=== PATIENT | male | born 1960 | race Caucasian/White ===

== ENCOUNTER 2016-10-05 09:05 | Emergency (ER) | payer MEDICAID, MEDICARE ==
--- NOTE | 2016-10-05 09:23 | ED.PDOC ---
History of Present Illness - General Chief Complaint: Skin/Abrasion/Tear Stated Complaint: Fall with head/knee abrasion Time Seen by Provider: 10/05/16 09:17 Source: family Exam Limitations: clinical condition, language barrier, physical impairment - History of Present Illness Initial Comments: Rogelio Chávez 56 y/o male mentally challenge and with limited verbal capacities brought by caregiver fell afte taking a shower with saclp abrasion and bilateral knee pain toady at home. Timing/Duration: just prior to arrival Severity: moderate Location: scalp, extremities Improving Factors: rest Worsening Factors: movement Associated Symptoms: other - erythema scalp/knees Allergies/Adverse Reactions: Allergies NO KNOWN ALLERGY Allergy (Verified 09/21/14 16:18) Home Medications: Ambulatory Orders Amoxicillin 875 mg PO BID #20 tab 02/28/15 Calcium & Phosphorus W/ Vitami [Citracal+D3 250-107-500 mg-mg-Unit] 1 chw PO DAILY 02/28/15 Carbamide Peroxide Otic [Debrox] 2 drops OTIC WKLY 02/28/15 Cellulose [Unifiber] 1 tsp PO DAILY 02/28/15 Clobetasol Propionate 0.05 % EX PRN PRN 02/28/15 Cyanocobalamin Inj [Vitamin B-12 Inj] 1,000 mcg IM MONTHLY 02/28/15 Cyanocobalamin [Vitamin B12] 1,000 mcg PO DAILY 02/28/15 Docusate Sodium [Colace Cap] 100 mg PO BID 02/28/15 Fluocinonide 0.05 % Cream [Lidex Cream] 1 applic TOP DAILY 02/28/15 Fosamax 1 each PO WKLY 02/28/15 Ketoconazole (Topical) [Nizoral] 2 % EX .TWICEWEEKLY 02/28/15 Lactulose Syrup [Chronulac] 30 ml PO BEDTIME 02/28/15 Loratadine [Claritin] 10 mg PO DAILY 02/28/15 Magnesium Citrate 150 ml PO WKLY 02/28/15 Magnesium Hydroxide [Milk Of Magnesia] 30 ml PO DAILY 02/28/15 Metoclopramide Tab [Reglan] 5 mg PO QID 02/28/15 OXcarbazepine [Trileptal] 300 mg PO DAILY 02/28/15 Oxcarbazepine [Trileptal] 600 mg PO BEDTIME 02/28/15 Pediatric Multivitamins W/Fl [Evna-LO-Uygs] 1 chw PO DAILY 02/28/15 Simethicone [Mylanta Gas] 125 mg PO DAILY 02/28/15 Review of Systems - Review of Systems Skin: States: see HPI Neurological: States: 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 Unable to Obtain Due To: condition - 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 Past Medical History (General) - Patient Medical History Hx Stroke: No Hx Congestive Heart Failure: No Hx Diabetes: No Hx Gastroesophageal Reflux: Yes Hx Other PMH: Yes - down syndrome /mental retatrdation Surgical History: other - back surgery - Vaccination History Hx Tetanus, Diphtheria Vaccination: Yes Hx Influenza Vaccination: No - Social History Hx Tobacco Use: No - Activities of Daily Living Patient Lives Alone: No - lives in a care home Home Health Agency (if applicable): [facility] Grooming Ability: Standby Assistance Eating (Feeding) Ability: Standby Assistance Toileting Ability: Standby Assistance Family Medical History - Family History Father Family History: Unknown Physical Exam - Physical Exam General Appearance: Alert, Comfortable, No apparent distress Eyes, Ears, Nose, Throat Exam: PERRL/EOMI, normal ENT inspection, pharynx normal Neck: non-tender, full range of motion, supple, normal inspection Cardiovascular/Chest: normal peripheral pulses, regular rate, rhythm, no gallop , no murmur Respiratory: chest non-tender, lungs clear, normal breath sounds Gastrointestinal/Abdominal: normal bowel sounds, non tender, soft, no organomegaly Back Exam: normal inspection, no CVA tenderness Extremity: no calf tenderness, pelvis stable, other - ,patella loose bilaterally non tenderness to pressure Neurologic: no motor/sensory deficits, alert Skin Exam: warm/dry, normal color Skin Problem Location: scalp, lower extremities - superficial abrasion scalp and right knee Skin Character: erythema Lymphatic: no adenopathy Progress - EKG/XRAY/CT XRAY: knee - bilateral patellar dislocation laterally/radiologist Departure - Departure Clinical Impression: Skin abrasion Fall at home Qualifiers: Encounter type: initial encounter Qualified Code(s): W19.XXXA - Unspecified fall, initial encounter Knee pain Qualifiers: Laterality: unspecified laterality Qualified Code(s): M25.569 - Pain in unspecified knee Dislocation closed, patella Qualifiers: Encounter type: initial encounter Laterality: unspecified laterality Qualified Code(s): S83.006A - Unspecified dislocation of unspecified patella, initial encounter Time of Disposition: 10:19 Disposition: Discharge to Home or Self Care Condition: Good Departure Forms: ED Discharge - Pt. Copy, Patient Portal Self Enrollment Instructions: Patellar Dislocation, DI for Patellar Dislocation Referrals: Zion Polanco III, MD [Primary Care Provider] - 1-2 Weeks Home Medications: Ambulatory Orders Amoxicillin 875 mg PO BID #20 tab 02/28/15 Calcium & Phosphorus W/ Vitami [Citracal+D3 250-107-500 mg-mg-Unit] 1 chw PO DAILY 02/28/15 Carbamide Peroxide Otic [Debrox] 2 drops OTIC WKLY 02/28/15 Cellulose [Unifiber] 1 tsp PO DAILY 02/28/15 Clobetasol Propionate 0.05 % EX PRN PRN 02/28/15 Cyanocobalamin Inj [Vitamin B-12 Inj] 1,000 mcg IM MONTHLY 02/28/15 Cyanocobalamin [Vitamin B12] 1,000 mcg PO DAILY 02/28/15 Docusate Sodium [Colace Cap] 100 mg PO BID 02/28/15 Fluocinonide 0.05 % Cream [Lidex Cream] 1 applic TOP DAILY 02/28/15 Fosamax 1 each PO WKLY 02/28/15 Ketoconazole (Topical) [Nizoral] 2 % EX .TWICEWEEKLY 02/28/15 Lactulose Syrup [Chronulac] 30 ml PO BEDTIME 02/28/15 Loratadine [Claritin] 10 mg PO DAILY 02/28/15 Magnesium Citrate 150 ml PO WKLY 02/28/15 Magnesium Hydroxide [Milk Of Magnesia] 30 ml PO DAILY 02/28/15 Metoclopramide Tab [Reglan] 5 mg PO QID 02/28/15 OXcarbazepine [Trileptal] 300 mg PO DAILY 02/28/15 Oxcarbazepine [Trileptal] 600 mg PO BEDTIME 02/28/15 Pediatric Multivitamins W/Fl [Aogu-PL-Gxyl] 1 chw PO DAILY 02/28/15 Simethicone [Mylanta Gas] 125 mg PO DAILY 02/28/15 Additional Instructions: Tylenol 500 mg by mouth every 6 hours for pain ;Follow up with primary md 2016
[2016-10-05 09:48] VITALS: BP 147/91
--- NOTE | 2016-10-05 09:55 | RAD ---
PROCEDURE: Knee,Right 2 or More Views Clinical History: pain Indication: Right knee pain. Comparison: None . Technique: 2.0 Views of the right knee were done. Findings: There is lateral dislocation of the right patella. Degenerative changes are seen in the right knee joint The bone mineralization is normal for patient's age and sex. The soft tissues are radiographically unremarkable. There is no visualization of any radiopaque foreign bodies in the evaluated soft tissues. Impression: Laterally dislocated right patella Place of interpretation: [id number]. Electronically signed by: Tez Watters MD 10/05/2016 9:54 AM CDT Workstation: [id number]
--- NOTE | 2016-10-05 09:56 | RAD ---
PROCEDURE: Knee,Left 2 or More Views Clinical History: pain Indication: Left knee pain. Comparison: None . Technique: 2.0 Views of the left knee were done. Findings: There is age indeterminate lateral dislocation of the left patella. Degenerative changes are seen in the left knee joint. Note is made of few joint bodies The soft tissues are radiographically unremarkable. There is no visualization of any radiopaque foreign bodies in the evaluated soft tissues. Impression: There is age indeterminate lateral dislocation of the left patella. Place of interpretation: [id number]. Electronically signed by: Tez Watters MD 10/05/2016 9:56 AM CDT Workstation: [id number]
[2016-10-05 10:39] VITALS: TEMP 98.6; O2SAT 98
== END 2016-10-05 10:39 | disposition home or self-care (01) ==
LOC: ER 09:05
DX: S00.01XA Abrasion of scalp, initial encounter (principal); S83.014A Lateral dislocation of right patella, initial encounter; M25.562 Pain in left knee; M25.561 Pain in right knee; Q90.9 Down syndrome, unspecified; F79 Unspecified intellectual disabilities; Z79.899 Other long term (current) drug therapy; W18.2XXA Fall in (into) shower or empty bathtub, initial encounter; Y93.E1 Activity, personal bathing and showering; Y92.002 Bathroom of unspecified non-institutional (private) residence as the place of occurrence of the external cause

== ENCOUNTER 2016-11-30 11:14 | Emergency (ER) | payer MEDICARE, MEDICAID ==
[2016-11-30] MEDS ORDERED: ACETAMINOPHEN 500 MG TAB PO ONE (11:32)
[2016-11-30 11:34] VITALS: BP 154/99; TEMP 96; O2SAT 97
--- NOTE | 2016-11-30 11:35 | ED.PDOC ---
History of Present Illness - General Chief Complaint: Lower Extremity Injury Stated Complaint: bruising to right foot Time Seen by Provider: 11/30/16 11:30 Source: RN notes reviewed, Vital Signs reviewed, other - Caregiver Exam Limitations: physical impairment Additional Information: Mental impairment - non-verbal - History of Present Illness Initial Comments: Patient was noted this morning to have bruising on his R foot. Unsure what happened. Apparently there was a fire drill yesterday and he may have fallen during this. No medications given because prior to arrival @ ER he was laughing and did not appear to be in pain. Now he is moaning and yelling and asking for pain medication through sign language. Occurred: yesterday Pain - Lower Extremity: mild: Right Foot Method of Injury: unknown Improving Factors: nothing Worsening Factors: nothing Allergies/Adverse Reactions: Allergies NO KNOWN ALLERGY Allergy (Verified 09/21/14 16:18) Home Medications: Ambulatory Orders Calcium & Phosphorus W/ Vitami [Citracal+D3 250-107-500 mg-mg-Unit] 1 chw PO DAILY 02/28/15 Carbamide Peroxide Otic [Debrox] 2 drops OTIC WKLY 02/28/15 Cyanocobalamin Inj [Vitamin B-12 Inj] 1,000 mcg IM MONTHLY 02/28/15 Cyanocobalamin [Vitamin B12] 1,000 mcg PO DAILY 02/28/15 Docusate Sodium [Colace Cap] 100 mg PO BID 02/28/15 Fosamax 1 each PO WKLY 02/28/15 Ketoconazole (Topical) [Nizoral] 2 % EX .TWICEWEEKLY 02/28/15 Lactulose Syrup [Chronulac] 30 ml PO BEDTIME 02/28/15 Loratadine [Claritin] 10 mg PO DAILY 02/28/15 Magnesium Citrate 150 ml [place] WKLY 02/28/15 Magnesium Hydroxide [Milk Of Magnesia] 30 ml PO DAILY 02/28/15 Metoclopramide Tab [Reglan] 5 mg PO QID 02/28/15 OXcarbazepine [Trileptal] 300 mg PO DAILY 02/28/15 Oxcarbazepine [Trileptal] 600 mg PO BEDTIME 02/28/15 Pediatric Multivitamins W/Fl [Hhjc-ZM-Plfl] 1 chw PO DAILY 02/28/15 Simethicone [Mylanta Gas] 125 mg PO DAILY 02/28/15 Meloxicam 7.5 mg PO BID 11/30/16 Review of Systems - Review of Systems Constitutional: States: no symptoms reported Respiratory: States: no symptoms reported Cardiology: States: no symptoms reported Musculoskeletal: States: see HPI Skin: States: see HPI All other Systems: No Change from Baseline Past Medical History (General) - Patient Medical History Hx Seizures: No Hx Stroke: No Hx Dementia: No Hx Asthma: No Hx of COPD: No Hx Cardiac Disorders: No Hx Congestive Heart Failure: No Hx Pacemaker: No Hx Hypertension: No Hx Thyroid Disease: No Hx Diabetes: No Hx Gastroesophageal Reflux: Yes Hx Renal Disease: No Hx Cancer: No Hx of HIV: No Hx Hepatitis C: No Hx MRSA: No - Vaccination History Hx Tetanus, Diphtheria Vaccination: Yes Hx Influenza Vaccination: Yes - Social History Hx Tobacco Use: No Hx Alcohol Use: No Hx Substance Use: No Hx Substance Use Treatment: No Hx Depression: No Family Medical History - Family History Father Family History: Unknown Physical Exam - Physical Exam General Appearance: Agitated, Comfortable, Well Developed, Well Groomed, Well Hydrated, Well Nourished Cardiovascular/Respiratory: normal peripheral pulses Ankle: normal inspection, non-tender, no evidence of injury, normal ROM Foot: ecchymosis - of lateral great toe and along dorsum of foot over 1st metatarsal. No obvious tenderness to palpation. Neuro/Tendon: normal sensation, normal motor functions, normal tendon functions Mental Status: alert Skin: normal color, warm/dry Comments: Vital Signs 11/30/16 11:27 Temperature 96 F L Pulse Rate [ 85 Right Brachial] Respiratory 20 Rate Blood Pressure 154/99 [Right Arm] O2 Sat by Pulse 97 Oximetry Progress - EKG/XRAY/CT XRAY: Foot: no fracture per Radiologist Departure - Departure Clinical Impression: Contusion of foot, right Qualifiers: Encounter type: initial encounter Qualified Code(s): S90.31XA - Contusion of right foot, initial encounter Time of Disposition: 12:10 Disposition: Discharge to Home or Self Care Condition: Good Departure Forms: ED Discharge - Pt. Copy, Patient Portal Self Enrollment Instructions: DI for Contusion Diet: resume usual diet Activity: increase activity as tolerated Referrals: Zion Polanco III, MD [Primary Care Provider] - 1-2 Weeks Home Medications: Ambulatory Orders Calcium & Phosphorus W/ Vitami [Citracal+D3 250-107-500 mg-mg-Unit] 1 chw PO DAILY 02/28/15 Carbamide Peroxide Otic [Debrox] 2 drops OTIC WKLY 02/28/15 Cyanocobalamin Inj [Vitamin B-12 Inj] 1,000 mcg IM MONTHLY 02/28/15 Cyanocobalamin [Vitamin B12] 1,000 mcg PO DAILY 02/28/15 Docusate Sodium [Colace Cap] 100 mg PO BID 02/28/15 Fosamax 1 each PO WKLY 02/28/15 Ketoconazole (Topical) [Nizoral] 2 % EX .TWICEWEEKLY 02/28/15 Lactulose Syrup [Chronulac] 30 ml PO BEDTIME 02/28/15 Loratadine [Claritin] 10 mg PO DAILY 02/28/15 Magnesium Citrate 150 ml [place] WKLY 02/28/15 Magnesium Hydroxide [Milk Of Magnesia] 30 ml PO DAILY 02/28/15 Metoclopramide Tab [Reglan] 5 mg PO QID 02/28/15 OXcarbazepine [Trileptal] 300 mg PO DAILY 02/28/15 Oxcarbazepine [Trileptal] 600 mg PO BEDTIME 02/28/15 Pediatric Multivitamins W/Fl [Gfbr-SD-Rupg] 1 chw PO DAILY 02/28/15 Simethicone [Mylanta Gas] 125 mg PO DAILY 02/28/15 Meloxicam 7.5 mg PO BID 11/30/16
--- NOTE | 2016-11-30 12:07 | RAD ---
EXAM DESCRIPTION: Foot,Right 3 Views CLINICAL HISTORY: 56 years, Male, Bruising over great toe and 1st metatarsal COMPARISON: RIGHT foot radiographs dated 11/23/2008. FINDINGS: Three views the RIGHT foot were performed. No localized soft tissue swelling or radiopaque foreign body is identified. Bone mineralization is within normal limits. No fracture is identified. Bony alignment is maintained aside from a hallux valgus deformity of the RIGHT first MTP joint. The medial sesamoid bone is uncovered. Findings have worsened since the prior study. No suspicious calcification is detected. IMPRESSION: No acute bony injury in the RIGHT foot. Worsened hallux valgus deformity of the RIGHT first digit. Electronically signed by: Hamida Christensen MD 11/30/2016 12:06 PM CDT
== END 2016-11-30 12:15 | disposition home or self-care (01) ==
LOC: ER 11:14
DX: S90.31XA Contusion of right foot, initial encounter (principal); K21.9 Gastro-esophageal reflux disease without esophagitis; Z79.899 Other long term (current) drug therapy; X58.XXXA Exposure to other specified factors, initial encounter

== ENCOUNTER → 2016-12-23 | Outpatient (CLI) | payer MEDICARE, MEDICAID | END | disposition home or self-care (01) | LOC: LAB.O 09:55 | PROVIDERS: ATTEND Family Medicine | DX: G40.309 Generalized idiopathic epilepsy and epileptic syndromes, not intractable, without status epilepticus (principal); E53.8 Deficiency of other specified B group vitamins; Z79.899 Other long term (current) drug therapy; Z12.5 Encounter for screening for malignant neoplasm of prostate; E55.9 Vitamin D deficiency, unspecified | CPT/HCPCS: 36415; 80053; 80061; 80299; 82306; 82607; 84443; 85025; G0103 ==

== ENCOUNTER 2017-04-01 16:25 | Emergency (ER) | payer MEDICARE, MEDICAID ==
[2017-04-01] MEDS ORDERED: SODIUM CHLORIDE 0.9% 1000ML 1,000 ML ONE (21:23)
[2017-04-01] MEDS ORDERED: SODIUM CHLORIDE 0.9% 1000ML 1,000 ML IVS ONE (21:41)
--- NOTE | 2017-04-01 21:42 | ED.PDOC ---
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 Pt is nonverbal. - History of Present Illness Timing/Duration: 24 hours Improving Factors: nothing Worsening Factors: nothing Associated Symptoms: cough - occasional Allergies/Adverse Reactions: Allergies NO KNOWN ALLERGY Allergy (Verified 04/01/17 19:14) Home Medications: Ambulatory Orders Calcium & Phosphorus W/ Vitami [Citracal+D3 250-107-500 mg-mg-Unit] 1 chw PO DAILY 02/28/15 Carbamide Peroxide Otic [Debrox] 2 drops OTIC WKLY 02/28/15 Cyanocobalamin Inj [Vitamin B-12 Inj] 1,000 mcg IM MONTHLY 02/28/15 Cyanocobalamin [Vitamin B12] 1,000 mcg PO DAILY 02/28/15 Docusate Sodium [Colace Cap] 100 mg PO BID 02/28/15 Fosamax 1 each PO WKLY 02/28/15 Ketoconazole (Topical) [Nizoral] 2 % EX .TWICEWEEKLY 02/28/15 Lactulose Syrup [Chronulac] 30 ml PO BEDTIME 02/28/15 Loratadine [Claritin] 10 mg PO DAILY 02/28/15 Magnesium Citrate 150 ml [place] WKLY 02/28/15 Magnesium Hydroxide [Milk Of Magnesia] 30 ml PO DAILY 02/28/15 Metoclopramide Tab [Reglan] 5 mg PO QID 02/28/15 OXcarbazepine [Trileptal] 300 mg PO DAILY 02/28/15 Oxcarbazepine [Trileptal] 600 mg PO BEDTIME 02/28/15 Pediatric Multivitamins W/Fl [Ffld-ZP-Pnyh] 1 chw PO DAILY 02/28/15 Simethicone [Mylanta Gas] 125 mg PO DAILY 02/28/15 Meloxicam 7.5 mg PO BID 11/30/16 Azithromycin [Zithromax Z-Gino] 1 ea PO DAILY #1 pack 04/01/17 Review of Systems - Review of Systems Unable to Obtain Due To: condition - at baseline Past Medical History (General) - Patient Medical History Hx Seizures: No Hx Stroke: No Hx Dementia: Yes Hx Asthma: No Hx of COPD: No Hx Cardiac Disorders: Yes Hx Congestive Heart Failure: No Hx Pacemaker: No Hx Hypertension: No Hx Thyroid Disease: No Hx Diabetes: No Hx Gastroesophageal Reflux: Yes Hx Renal Disease: No Hx Cancer: No Hx of HIV: No Hx Hepatitis C: No Hx MRSA: No Hx Other PMH: Yes - MR, Down's Syndrome Surgical History: other - Vaccination History Hx Tetanus, Diphtheria Vaccination: Yes Hx Influenza Vaccination: No Hx Pneumococcal Vaccination: No - Social History Hx Tobacco Use: No Hx Alcohol Use: No Hx Substance Use: No Hx Substance Use Treatment: No Hx Depression: No - Triage Comment ED Triage Comment: Presents to ER --caregiver states was at [facility] today and saw [facility] DUMONT and recommended pt to come to ER. Pt has not been eating or drinking well since Thursday, but worse today. Family Medical History - Family History Father Family History: Unknown Physical Exam - Physical Exam General Appearance: Agitated - but consolable, Obese Eye Exam: bilateral normal Ears, Nose, Throat: hearing grossly normal, other - mucus membranes mild to moderately dry Neck: non-tender, full range of motion, supple Respiratory: rales - Left > Right, rhonchi - Left > Right Cardiovascular/Chest: normal peripheral pulses, regular rate, rhythm, no murmur Gastrointestinal/Abdominal: non tender, soft Rectal Exam: normal exam Back Exam: normal inspection, no vertebral tenderness Extremity: normal range of motion, non-tender, normal inspection Neurologic: no motor/sensory deficits Skin Exam: normal color Progress - Progress Progress: 04/01/17 22:54 Pt with findings consistent with Pneumonia. Pt stable for d/c back to assisted living facility with strict return precautions. 04/01/17 23:45 - Results/Orders Results/Orders: Chest X-ray: CLINICAL HISTORY: low sats COMPARISON: 03/25/2016 FINDINGS: Cardiac silhouette is within normal limits. There is consolidation at each lung base with persistent elevation of the right hemidiaphragm.. Visualized osseous structures are within normal limits. IMPRESSION: Bilateral consolidations. 04/01/17 21:14 INFLUENZA A & B BY PCR Stat GROUP A STREP SCREEN,PCR Stat 04/01/17 21:43 Azithromycin IV [Zithromax IV] 500 mg Sodium Chloride 0.9% 250Ml [NS 250ml] 250 ml IVPB ONCE 04/01/17 21:58 BLOOD CULTURE Stat 04/01/17 22:00 cefTRIAXone SODIUM [Rocephin] 1 gm Sodium Chl 0.9% 50Ml Min-Bag+ [NS 50ml MINI -BAG+] 50 ml IVPB Q24H 04/01/17 22:16 Sodium Chloride 0.9% 1000ML [Ns 1000 ml] 1,000 ml IVS .QD Laboratory Results - last 24 hr 04/01/17 04/01/17 21:19 21:19 WBC 6.6 RBC 4.58 L Hgb 14.8 Hct 45.1 MCV 98.3 H MCH 32.3 H MCHC 32.9 L RDW 14.3 Plt Count 100 L MPV 8.0 Absolute Neuts (auto) 5.70 Absolute Lymphs (auto) 0.30 L Absolute Monos (auto) 0.60 Absolute Eos (auto) 0.00 Absolute Basos (auto) 0.00 Neutrophils % 86.2 H Lymphocytes % 4.4 L Monocytes % 9.2 H Eosinophils % 0.0 L Basophils % 0.2 Sodium 140 Potassium 4.4 Chloride 96 L Carbon Dioxide 32 H Anion Gap 16.4 BUN 28 H Creatinine 1.07 BUN/Creatinine Ratio 26.2 H Random Glucose 128 H Serum Osmolality 286.5 Calcium 9.0 Total Bilirubin 0.4 AST 50 H ALT 32 Alkaline Phosphatase 105 Serum Total Protein 6.9 Albumin 3.5 Globulin 3.4 Albumin/Globulin Ratio 1.0 L 04/01/17 19:17 Temperature 99.0 F Pulse Rate [ 97 H monitor] Respiratory 16 Rate Blood Pressure 104/63 [Rt arm] O2 Sat by Pulse 80 L Oximetry Departure - Departure Clinical Impression: Pneumonia Qualifiers: Pneumonia type: due to unspecified organism Laterality: bilateral Lung location : lower lobe of lung Qualified Code(s): J18.9 - Pneumonia, unspecified organism Time of Disposition: 23:40 Disposition: Discharge to Home or Self Care Condition: Fair Departure Forms: ED Discharge - Pt. Copy, Patient Portal Self Enrollment Instructions: DI for Pneumonia -- Adult Referrals: Zion Polanco III, MD [Primary Care Provider] - 1-5 Days Prescriptions: Azithromycin [Zithromax Z-Gino] 1 ea PO DAILY #1 pack Home Medications: Ambulatory Orders Calcium & Phosphorus W/ Vitami [Citracal+D3 250-107-500 mg-mg-Unit] 1 chw PO DAILY 02/28/15 Carbamide Peroxide Otic [Debrox] 2 drops OTIC WKLY 02/28/15 Cyanocobalamin Inj [Vitamin B-12 Inj] 1,000 mcg IM MONTHLY 02/28/15 Cyanocobalamin [Vitamin B12] 1,000 mcg PO DAILY 02/28/15 Docusate Sodium [Colace Cap] 100 mg PO BID 02/28/15 Fosamax 1 each PO WKLY 02/28/15 Ketoconazole (Topical) [Nizoral] 2 % EX .TWICEWEEKLY 02/28/15 Lactulose Syrup [Chronulac] 30 ml PO BEDTIME 02/28/15 Loratadine [Claritin] 10 mg PO DAILY 02/28/15 Magnesium Citrate 150 ml [place] WKLY 02/28/15 Magnesium Hydroxide [Milk Of Magnesia] 30 ml PO DAILY 02/28/15 Metoclopramide Tab [Reglan] 5 mg PO QID 02/28/15 OXcarbazepine [Trileptal] 300 mg PO DAILY 02/28/15 Oxcarbazepine [Trileptal] 600 mg PO BEDTIME 02/28/15 Pediatric Multivitamins W/Fl [Xezv-JC-Bqhr] 1 chw PO DAILY 02/28/15 Simethicone [Mylanta Gas] 125 mg PO DAILY 02/28/15 Meloxicam 7.5 mg PO BID 11/30/16 Azithromycin [Zithromax Z-Gino] 1 ea PO DAILY #1 pack 04/01/17 Additional Instructions: Stay well hydrated. Take full course of antibiotics. Return to ER if condition worsens.
[2017-04-01] MEDS ORDERED: AZITHROMYCIN IV 500 MG in SODIUM CHLORIDE 0.9% 250ML 250 ML IVPB ONE (21:43)
[2017-04-01] MEDS: SODIUM CHLORIDE 0.9% 1000ML 1,000 ML IVS ONE ×2 (21:44→21:45)
[2017-04-01] MEDS ORDERED: AZITHROMYCIN IV 500 MG VIAL IVPB ONE (21:51)
[2017-04-01] MEDS ORDERED: SODIUM CHLORIDE 0.9% 250ML 250 ML ONE (21:51)
[2017-04-01] MEDS ORDERED: SODIUM CHL 0.9% 50ML MIN-BAG+ 50 ML IVPB ONE (21:52)
[2017-04-01] MEDS ORDERED: cefTRIAXone SODIUM 1 GM VIAL ONE (21:52)
--- NOTE | 2017-04-01 21:53 | RAD ---
EXAM DESCRIPTION: Chest,1 View CLINICAL HISTORY: low sats COMPARISON: 03/25/2016 FINDINGS: Cardiac silhouette is within normal limits. There is consolidation at each lung base with persistent elevation of the right hemidiaphragm.. Visualized osseous structures are within normal limits. IMPRESSION: Bilateral consolidations. Electronically signed by: Edinson Chen 04/01/2017 9:51 PM PSYCHOLOGIST SOCIAL
[2017-04-01] MEDS ORDERED: cefTRIAXone SODIUM 1 GM in SODIUM CHL 0.9% 50ML MIN-BAG+ 50 ML IVPB SCH (22:00)
[2017-04-01] MEDS ORDERED: SODIUM CHLORIDE 0.9% 1000ML 1,000 ML IVS PRN (22:16)
[2017-04-01] MEDS ORDERED: AZITHROMYCIN 250 MG TAB PO ONE (23:12)
[2017-04-02 00:07] VITALS: TEMP 99
[2017-04-02 00:08] VITALS: BP 109/74; O2SAT 82
== END 2017-04-02 00:10 | disposition home or self-care (01) ==
LOC: ER 16:25
DX: J18.9 Pneumonia, unspecified organism (principal); K21.9 Gastro-esophageal reflux disease without esophagitis; Q90.9 Down syndrome, unspecified
CPT/HCPCS: 36415; 71010; 80053; 85025; 87040; 87070; 87502; 87651; J0456; J0696; J7030; J7050; Q0144

== ENCOUNTER 2017-04-02 13:35 | Emergency (ER) | payer MEDICARE, MEDICAID ==
[2017-04-02] MEDS ORDERED: OSELTAMIVIR 75 MG CAP PO ONE (14:56)
[2017-04-02] MEDS ORDERED: IPRATROPIUM/ALBUTEROL 3 ML VIAL NEB ONE (14:56)
[2017-04-02] MEDS ORDERED: PROMETHAZINE HCL INJ 25 MG/ML VIAL IM ONE (14:57)
[2017-04-02] MEDS ORDERED: LACTATED RINGERS 1,000 ML IVS ONE (14:57)
--- NOTE | 2017-04-02 15:09 | ED.PDOC ---
History of Present Illness - General Chief Complaint: Respiratory Problem Stated Complaint: flu,pneumonia,fever Time Seen by Provider: 04/02/17 14:31 Source: patient Exam Limitations: clinical condition, language barrier, physical impairment, other - Has down syndome with mental impairment non verbal - History of Present Illness Initial Comments: Rogelio Chávez 56 y/o male brought to hospital by POV with loss of appetite not taking medications.He was diagnosed with flu B and bilateral infiltrates on chest x ray with low o2 saturation on pulse oximeter.He was given rocephin and Zithromax [place]He was also prescribed Tamiflu but not taking it Timing/Duration: 24 hours Severity: moderate Improving Factors: nothing Allergies/Adverse Reactions: Allergies NO KNOWN ALLERGY Allergy (Verified 04/01/17 19:14) Home Medications: Ambulatory Orders Calcium & Phosphorus W/ Vitami [Citracal+D3 250-107-500 mg-mg-Unit] 1 chw PO DAILY 02/28/15 Carbamide Peroxide Otic [Debrox] 2 drops OTIC WKLY 02/28/15 Cyanocobalamin Inj [Vitamin B-12 Inj] 1,000 mcg IM MONTHLY 02/28/15 Cyanocobalamin [Vitamin B12] 1,000 mcg PO DAILY 02/28/15 Docusate Sodium [Colace Cap] 100 mg PO BID 02/28/15 Fosamax 1 each PO WKLY 02/28/15 Ketoconazole (Topical) [Nizoral] 2 % EX .TWICEWEEKLY 02/28/15 Lactulose Syrup [Chronulac] 30 ml PO BEDTIME 02/28/15 Loratadine [Claritin] 10 mg PO DAILY 02/28/15 Magnesium Citrate 150 ml MT WKLY 02/28/15 Magnesium Hydroxide [Milk Of Magnesia] 30 ml PO DAILY 02/28/15 Metoclopramide Tab [Reglan] 5 mg PO QID 02/28/15 OXcarbazepine [Trileptal] 300 mg PO DAILY 02/28/15 Oxcarbazepine [Trileptal] 600 mg PO BEDTIME 02/28/15 Pediatric Multivitamins W/Fl [Bnke-FY-Griu] 1 chw PO DAILY 02/28/15 Simethicone [Mylanta Gas] 125 mg PO DAILY 02/28/15 Meloxicam 7.5 mg PO BID 11/30/16 Azithromycin [Zithromax Z-Gino] 1 ea PO DAILY #1 pack 04/01/17 Oseltamivir Capsule [Tamiflu] 75 mg PO BID 5 Days #10 cap 04/02/17 Review of Systems - Review of Systems Constitutional: States: no symptoms reported EENTM: States: no symptoms reported Respiratory: States: see HPI Cardiology: States: no symptoms reported Gastrointestinal/Abdominal: States: no symptoms reported Unable to Obtain Due To: clinical condition, other - see hpi All other Systems: Reviewed and Negative, No Change from Baseline Past Medical History (General) - Patient Medical History Hx Seizures: No Hx Stroke: No Hx Dementia: Yes Hx Asthma: No Hx of COPD: No Hx Cardiac Disorders: Yes Hx Congestive Heart Failure: No Hx Pacemaker: No Hx Hypertension: No Hx Thyroid Disease: No Hx Diabetes: No Hx Gastroesophageal Reflux: Yes Hx Renal Disease: No Hx Cancer: No Hx of HIV: No Hx Hepatitis C: No Hx MRSA: No Hx Other PMH: Yes - down syndome Surgical History: noncontributory, other - gi surgery in infancy - Vaccination History Hx Tetanus, Diphtheria Vaccination: Yes Hx Influenza Vaccination: No Hx Pneumococcal Vaccination: No - Social History Hx Tobacco Use: No Hx Alcohol Use: No Hx Substance Use: No Hx Substance Use Treatment: No Hx Depression: No Family Medical History - Family History Father Family History: Unknown Physical Exam - Physical Exam General Appearance: Alert, No apparent distress Eye Exam: bilateral other - decrase lens opacity possible cataract Ears, Nose, Throat: normal ENT inspection, normal pharynx Neck: non-tender Respiratory: no respiratory distress, other - coarse breath sounds Cardiovascular/Chest: normal peripheral pulses, regular rate, rhythm, no murmur Peripheral Pulses: radial,right: 2+, radial,left: 2+ Gastrointestinal/Abdominal: normal bowel sounds, non tender, soft Back Exam: normal inspection, no CVA tenderness, no vertebral tenderness Extremity: normal range of motion, non-tender, no pedal edema, no calf tenderness Neurologic: alert Skin Exam: normal color, warm/dry Lymphatic: no adenopathy Progress - Progress Progress: 04/02/17 17:06 Last Vital Signs Temp 101.3 F H 04/02/17 14:32 Pulse 97 H 04/02/17 16:58 Resp 20 12/28/17 16:58 BP 98/68 04/02/17 16:58 Pulse Ox 70 L 04/02/17 15:43 Initial Blood culture -no growth 24 hours - Results/Orders Results/Orders: Laboratory Tests 04/02/17 04/02/17 04/02/17 15:56 15:56 15:56 WBC 11.7 H D RBC 4.53 L Hgb 14.5 Hct 44.5 MCV 98.3 H MCH 32.0 H MCHC 32.6 L RDW 14.2 Plt Count 94 L MPV 8.0 Absolute Neuts (auto) 10.70 H Absolute Lymphs (auto) 0.40 L Absolute Monos (auto) 0.60 Absolute Eos (auto) 0.00 Absolute Basos (auto) 0.00 Neutrophils % 91.3 H Lymphocytes % 3.1 L Monocytes % 5.4 Eosinophils % 0.0 L Basophils % 0.2 Sodium 142 Potassium 4.9 Chloride 102 Carbon Dioxide 29 Anion Gap 15.9 BUN 21 H Creatinine 1.06 BUN/Creatinine Ratio 19.8 Random Glucose 122 H Serum Osmolality 287.4 Lactic Acid 2.3 H Calcium 8.6 1900 Patient was about to be transferred to another hospital then he was noted to be cyanotic and cpr was then started and bagging was done thru et tube but continue to desaturate with Sao2 20's and no rhythm on heart monitor,so it was decided to pullout the et tube and noted thick mucus plug continued cpr done given 2 doses of epi and atropine which showed return of spontaneous circulation chest x ray post placement done x 2. - EKG/XRAY/CT XRAY: chest - right lower lobe pnuemonia Procedures - Intubation Time of Intubation: 17:30 Intubation Method: orotracheal Tube Size (cm): 8.0 Medications: Succinylcholine, Versed Breath Sounds after Intubation: equal Intubation Complications: no complications Post Intubation Xray: Yes Departure - Departure Clinical Impression: Influenza B, Pneumonia due to H1N1 influenza, Cardiorespiratory arrest Respiratory failure with hypoxia Qualifiers: Chronicity: acute Qualified Code(s): J96.01 - Acute respiratory failure with hypoxia Time of Disposition: 19:16 Departure Forms: ED Discharge - Pt. Copy, Patient Portal Self Enrollment Referrals: Zion Polanco III, MD [Primary Care Provider] - 1-2 Weeks Home Medications: Ambulatory Orders Calcium & Phosphorus W/ Vitami [Citracal+D3 250-107-500 mg-mg-Unit] 1 chw PO DAILY 02/28/15 Carbamide Peroxide Otic [Debrox] 2 drops OTIC WKLY 02/28/15 Cyanocobalamin Inj [Vitamin B-12 Inj] 1,000 mcg IM MONTHLY 02/28/15 Cyanocobalamin [Vitamin B12] 1,000 mcg PO DAILY 02/28/15 Docusate Sodium [Colace Cap] 100 mg PO BID 02/28/15 Fosamax 1 each PO WKLY 02/28/15 Ketoconazole (Topical) [Nizoral] 2 % EX .TWICEWEEKLY 02/28/15 Lactulose Syrup [Chronulac] 30 ml PO BEDTIME 02/28/15 Loratadine [Claritin] 10 mg PO DAILY 02/28/15 Magnesium Citrate 150 ml MT WKLY 02/28/15 Magnesium Hydroxide [Milk Of Magnesia] 30 ml PO DAILY 02/28/15 Metoclopramide Tab [Reglan] 5 mg PO QID 02/28/15 OXcarbazepine [Trileptal] 300 mg PO DAILY 02/28/15 Oxcarbazepine [Trileptal] 600 mg PO BEDTIME 02/28/15 Pediatric Multivitamins W/Fl [Essb-QK-Jklq] 1 chw PO DAILY 02/28/15 Simethicone [Mylanta Gas] 125 mg PO DAILY 02/28/15 Meloxicam 7.5 mg PO BID 11/30/16 Azithromycin [Zithromax Z-Gino] 1 ea PO DAILY #1 pack 04/01/17 Oseltamivir Capsule [Tamiflu] 75 mg PO BID 5 Days #10 cap 04/02/17 Transfer to Outside Facility - Transfer Information Accepting Provider:: D/W Dr. Sky Santiago Accepting Facility: [facility] Reason for Transfer: specialized care not available
[2017-04-02] MEDS ORDERED: KETOROLAC TROMETHAMINE INJ 30 MG/ML VIAL IV ONE (15:14)
--- NOTE | 2017-04-02 15:31 | RAD ---
EXAM DESCRIPTION: Chest,1 View CLINICAL HISTORY: 56 years,Male,history of pna -ff up COMPARISON: April 01 FINDINGS: Consolidation demonstrated in the right lung base which is worsened since prior study. Heart size and pulmonary vascularity are normal. Severe degenerative changes in the left shoulder large amount of possible loose bodies IMPRESSION: Worsening infiltrate right lung base Electronically signed by: Zion Lora MD 04/02/2017 3:30 PM [employer]
[2017-04-02] MEDS ORDERED: SODIUM CHLORIDE 0.9% 1000ML 1,000 ML IVS ONE (16:44)
[2017-04-02] MEDS ORDERED: VANCOMYCIN HCL INJ 1,000 MG in SODIUM CHLORIDE 0.9% 250ML 250 ML IVPB ONE (17:08)
[2017-04-02] MEDS ORDERED: SUCCINYLCHOLINE CHLORIDE 200 MG/10 ML VIAL ONE (17:17)
[2017-04-02] MEDS ORDERED: VANCOMYCIN HCL INJ 1,000 MG VIAL IVPB ONE (17:37)
[2017-04-02] MEDS ORDERED: SODIUM CHLORIDE 0.9% 250ML 250 ML ONE (17:37)
--- NOTE | 2017-04-02 17:59 | RAD ---
EXAM DESCRIPTION: Chest,1 View CLINICAL HISTORY: post intubation COMPARISON: 04/02/2017 at 1511 hours FINDINGS: There is decreased density of consolidations in the right lung base but mild worsening of consolidation in the medial right midlung and left lung base. ET tube tip is approximately 8 mm beyond the origin of the right mainstem bronchus and should probably be repositioned. Cardiac silhouette is within normal limits. IMPRESSION: Low position of the ET tube. Repositioning is likely desirable. Electronically signed by: Edinson Chen 04/02/2017 5:58 PM [facility]
[2017-04-02 21:09] VITALS: BP 96/62; TEMP 96.5; O2SAT 96
[2017-04-02] MEDS ORDERED: WATER FOR INJ 10 ML VIAL INJ ONE (22:00)
[2017-04-02] MEDS ORDERED: ATROPINE 1 MG/10 ML SYG IV ONE (22:00)
[2017-04-02] MEDS ORDERED: VECURONIUM BROMIDE 10 MG VIAL IV ONE (22:00)
[2017-04-02] MEDS ORDERED: EPINEPHrine INJ 0.1 MG/ML 10 ML SYG ONE (22:00)
[2017-04-02] MEDS ORDERED: MIDAZOLAM INJ 5 MG/5 ML VIAL ONE (22:00)
== END 2017-04-02 19:45 | disposition short-term general hospital (02) ==
LOC: ER 13:35
DX: I46.9 Cardiac arrest, cause unspecified (principal); J10.00 Influenza due to other identified influenza virus with unspecified type of pneumonia; Q90.9 Down syndrome, unspecified; J96.01 Acute respiratory failure with hypoxia; Z79.899 Other long term (current) drug therapy
CPT/HCPCS: 31500; 36415; 36600; 71010; 80048; 82803; 82805; 83605; 85025; 92950; 94002; 94640; 94770; A4216; J0330; J1885; J2060; J2250; J2550; J3370; J7030; J7050; J7120; J7620